=== PATIENT | female | born 1940 | race Caucasian/White ===

== ENCOUNTER → 2019-10-01 | Outpatient (CLI) | payer OTHER ==
[~2019-10-01] MED LIST: ASPIRIN81 M2 PO; COZAAR100 MG PO; METFORMIN500 MG PO; NORVASC2.5 MG PO; RANITIDINE300 MG PO; SIMVASTATIN40 MG PO; VITAMIN D31000 IU PO
[2019-10-01 10:28] LABS: BUN 23 mg/dl (7-24); CHLORIDE 108 mmol/L (98-107); CHOLESTEROL 144 mg/dL (<200); CREATININE 1.04 mg/dL (0.55-1.02); POTASSIUM 4.6 mmol/L (3.5-5.1); SODIUM 144 mmol/L (136-145)
[2019-10-01 10:38] LABS: HDL CHOLESTEROL 48 mg/dl (40-60); LDL CHOLESTEROL 73 mg/dL (9-159); TRIGLYCERIDES 116 mg/dl (<150); VLDL CHOLESTEROL 23 mg/dL (6-40)
== END | disposition home or self-care (01) ==
LOC: LAB 09:29
PROVIDERS: Family Medicine
DX: E78.2 Mixed hyperlipidemia (principal); I10 Essential (primary) hypertension; R73.9 Hyperglycemia, unspecified

== ENCOUNTER → 2021-10-22 | Outpatient (CLI) | payer OTHER ==
[2021-10-22 10:08] LABS: BUN 21 mg/dl (7-24); CHLORIDE 105 mmol/L (98-107); CREATININE 1.02 mg/dL (0.55-1.02); POTASSIUM 3.8 mmol/L (3.5-5.1); SODIUM 140 mmol/L (136-145)
[2021-10-22 10:11] LABS: CHOLESTEROL 139 mg/dL (<200); LDL CHOLESTEROL 67 mg/dL (9-159); TRIGLYCERIDES 130 mg/dl (<150)
== END | disposition home or self-care (01) ==
LOC: LAB 09:19
PROVIDERS: ATTEND Family Medicine
DX: R73.9 Hyperglycemia, unspecified (principal); I10 Essential (primary) hypertension; E78.2 Mixed hyperlipidemia

== ENCOUNTER → 2022-04-18 | Outpatient (CLI) | payer OTHER ==
[2022-04-18 09:45] LABS: BUN 21 mg/dl (7-24); CHLORIDE 107 mmol/L (98-107); CHOLESTEROL 139 mg/dL (<200); CREATININE 1.04 mg/dL (0.55-1.02); LDL CHOLESTEROL 68 mg/dL (9-159); POTASSIUM 4.3 mmol/L (3.5-5.1); SODIUM 140 mmol/L (136-145); TRIGLYCERIDES 116 mg/dl (<150)
== END | disposition home or self-care (01) ==
LOC: LAB 09:04
PROVIDERS: ATTEND Family Medicine
DX: I10 Essential (primary) hypertension (principal); E78.2 Mixed hyperlipidemia; R73.9 Hyperglycemia, unspecified

== ENCOUNTER → 2023-04-16 | Outpatient (CLI) | payer OTHER ==
[2023-04-16 10:25] LABS: ALKALINE PHOSPHATASE 58 U/L (46-116); BUN 17 mg/dl (9-23); CHLORIDE 107 mmol/L (98-107); CHOLESTEROL 136 mg/dL (<200); LDL CHOLESTEROL 76 mg/dL (9-159); POTASSIUM 3.9 mmol/L (3.4-5.1); SGPT/ALT 13 U/L (10-49); THYROID STIM HORMONE (HS) 1.317 uIU/ml (0.550-4.780); TOTAL PROTEIN 6.7 gm/dL (6.0-8.0); TRIGLYCERIDES 94 mg/dl (<150)
== END | disposition home or self-care (01) ==
LOC: LAB 09:01
PROVIDERS: ATTEND Family Medicine
DX: I10 Essential (primary) hypertension (principal); E11.9 Type 2 diabetes mellitus without complications; E78.2 Mixed hyperlipidemia

== ENCOUNTER → 2024-04-28 | Outpatient (CLI) | payer OTHER ==
[2024-04-28 09:49] LABS: POTASSIUM 3.9 mmol/L (3.4-5.1)
== END | disposition home or self-care (01) ==
LOC: LAB 08:57
PROVIDERS: ATTEND Family Medicine
DX: I10 Essential (primary) hypertension (principal); E11.9 Type 2 diabetes mellitus without complications